=== PATIENT | female | born 1950 | race Caucasian/White ===

== ENCOUNTER 2023-06-06 22:51 | Emergency (ER) | payer OTHER, BC ==
[2023-06-06 23:05] VITALS: BP 138/69; PULSE 77; RESP 16; TEMP 97.9; BMI 19.3
== END 2023-06-06 23:11 | disposition home or self-care (01) ==
LOC: FER 22:51
DX: J02.9 Acute pharyngitis, unspecified (principal); R50.9 Fever, unspecified
CPT/HCPCS: 87651; 99283-25

== ENCOUNTER 2023-06-12 21:51 | Emergency (ER) | payer OTHER, BC ==
[2023-06-12 22:03] VITALS: BP 116/56; PULSE 94; RESP 18; TEMP 97.7; BMI 19.5
[2023-06-12] MEDS ORDERED: methylPREDNISolone NA SUCC 125 MG/2 ML VIAL IVPB ONE (22:30)
[2023-06-12] MEDS ORDERED: FAMOTIDINE 20 MG/50 ML IVPB 20 MG/50 ML MG IVPB ONE ×2 (22:30→22:34)
[2023-06-12] MEDS ORDERED: ACETAMINOPHEN 1000 MG/100 ML BAG IVPB ONE (22:31)
[2023-06-12] MEDS ORDERED: ACETAMINOPHEN INJECTION 100 ML IVPB ONE (22:34)
[2023-06-12] MEDS ORDERED: methylPREDNISolone NA SUCC 40 MG/1 ML VIAL ONE (22:34)
[2023-06-12 22:51] LABS: HEMATOCRIT 36.8 % (32.4-45.2); HEMOGLOBIN 12.4 G/dL (10.7-15.3); MCH 32.4 pg (25.7-33.7); MCHC 33.7 g/dl (32.0-36.0); MEAN CELL VOLUME 96.4 fl (80-96); MEAN PLT VOLUME 7.4 fl (7.5-11.1); PLATELET COUNT 517.6 10^3/uL (134-434); RBC 3.82 10^6/uL (3.60-5.2); RDW 13.9 % (11.6-15.6); WHITE BLOOD COUNT 18.9 10^3/uL (4.0-10.8)
[2023-06-12 23:10] LABS: ALBUMIN 3.3 g/dl (3.4-5.0); BILIRUBIN,TOTAL 0.5 mg/dl (0.2-1); CALCIUM 8.5 mg/dl (8.5-10.1); CREATININE 0.5 mg/dl (0.6-1.3); POTASSIUM 3.2 mmol/L (3.5-5.1); TOT PROT 6.5 g/dl (6.4-8.2)
[2023-06-13] MEDS ORDERED: POTASSIUM CHLORIDE TABS 20 MEQ TABLET.ER (FP) PO ONE ×2 (00:14→00:15)
== END 2023-06-13 00:43 | disposition home or self-care (01) ==
LOC: FER 21:51
PROC: 3E033GC Introduction of Other Therapeutic Substance into Peripheral Vein, Percutaneous Approach (ICD-10-PCS; principal; 2023-06-12)
PROC: 3E033NZ Introduction of Analgesics, Hypnotics, Sedatives into Peripheral Vein, Percutaneous Approach (ICD-10-PCS; 2023-06-12)
PROC: 3E033GC Introduction of Other Therapeutic Substance into Peripheral Vein, Percutaneous Approach (ICD-10-PCS; 2023-06-12)
DX: M54.2 Cervicalgia (principal); M54.6 Pain in thoracic spine; M79.10 Myalgia, unspecified site; M06.08 Rheumatoid arthritis without rheumatoid factor, vertebrae
CPT/HCPCS: 36415; 80053; 85027; 85651; 86140; 99284-25